=== PATIENT | female | born 1955 | race Caucasian/White ===

== ENCOUNTER 2018-10-10 14:24 | Observation (INO) | payer MEDICARE, OTHER, SELFPAY ==
[2018-10-10] VITALS (8 sets, daily range): BP systolic 124–159; BP diastolic 74–86; PULSE 66–82; RESP 14–20; TEMP 36.6–36.8; O2SAT 96–97; BMI 26.9; BMI 25.9; BMI 26.0
--- NOTE | 2018-10-10 15:09 | EKG12_ITS ---
Test Reason : CP REPEAT Blood Pressure : / mmHG Vent. Rate : 067 BPM Atrial Rate : 067 BPM P-R Int : 168 ms QRS Dur : 084 ms QT Int : 388 ms P-R-T Axes : 016 -18 013 degrees QTc Int : 409 ms Normal sinus rhythm Normal ECG When compared with ECG of 24-SEP-2015 09:59, No significant change was found Confirmed by ANASTASIA FERRARO, SANDIE ([id number]), non linear editor SOULEYMANE PRATT ([id number]) on 10/12/2018 8:53:48 AM Referred By: ANASTACIO Confirmed By:SANDIE OCONNOR MD
--- NOTE | 2018-10-10 15:15 | RAD_ITS ---
STUDY: X-RAY CHEST REASON FOR EXAM: Female, 63 years old. Chest pain TECHNIQUE: Single AP portable view of the chest. COMPARISON: None. FINDINGS: The lungs are clear and expanded. There is no demonstrated pleural abnormality. Normal size heart. Normal mediastinum and jose cruz. Normal visualized pulmonary arteries. Normal visualized aortic arch and descending thoracic aorta. There are diffuse degenerative changes of the visualized thoracic spine. There is degenerative osteoarthritis of the bilateral shoulders. There is no demonstrated abnormality of the visualized soft tissue structures of the upper abdomen. RAD/Chest 1 View (Portable) IMPRESSION: Degenerative changes, as described above. No demonstrated acute cardiopulmonary process. Electronically Signed: Jose Martinez, at 15:40 EDT Tel , Service support ,
[2018-10-10] MEDS: Aspirin 81 MG TAB.CHEW 324 MG PO (15:38)
--- NOTE | 2018-10-10 15:44 | ED.VISSUMM ---
- ER Visit Summary Date of Service: 10/10/18 Chief Complaint: [Chest pain] History of Present Illness: The patient is a 63 F [presents the emergency department complaint of chest pain that started around 2 PM today. 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 Patient has a hard time describing the discomfort but is got a dog at times and prickly at times counter underneath her breast and radiating into her left arm. Patient felt short of breath with it and somewhat nauseated. She denies feeling diaphoretic. Patient is never had discomfort like this before. Patient currently states the discomfort is resolved. Patient states his symptoms lasted more than half an hour. She takes no medications. Patient has had prior cholecystectomy. She denies recent travel or surgery. Patient's last stress test was about for 5 years ago and was normal. ] Physical Examination: [HEENT-PERRLA, EOMI. Cranial nerves II through XII grossly intact. TMs clear. Mucous membranes moist. No adenopathy. Cardiovascular-regular rate and rhythm without murmur or ectopy Lungs-clear to auscultation, chest wall stable without crepitus or subcu emphysema Abdomen-normoactive bowel sounds, soft, nontender, no rebound or rigidity, no peritoneal signs. Extremities-intact ?4, normal range of motion, normal pulses, atraumatic] Test Results: EKG obtained on arrival shows sinus rhythm with a ventricular rate of 84 bpm with some nonspecific ST changes. Chest x-ray showed nothing acute. [CBC with differential obtained was normal. Chemistries were unremarkable. Troponin was less than 0.015. D-dimer was 0.40.] Emergency Department Course and Treatment: [Patient received aspirin in the emergency department.] Treatment Plan: [Patient will be admitted for further workup and evaluation of her chest pain at] Disposition: [Admit] Impression: [Chest pain-rule out acute coronary syndrome] This note was generated with [employer] software. It may contain incorrect words, spelling, and punctuation that were not noted in review of the chart prior to signing ED Disposition - Plan for ED Patient: Referrals: Kosta Gil MD [Primary Care Provider] -
[2018-10-10 15:46] LABS: Absolute Lymphocyte Count 1.55 X10^3/ul (0.83-4.51); Absolute Neutrophil Count 4.8 X10^3/uL (2.0-7.7); Basophil# 0.05 X10^3/uL; Basophil% 0.7 % (0-1); Eosinophil# 0.27 X10^3/uL; Eosinophils% 3.7 % (0-5); Hematocrit 42.4 % (37-47); Hemoglobin 13.5 g/dl (12.0-15.0); Lymphocyte # 1.55 X10^3/ul (4.0); Mean Corp Hgb Conc 31.8 g/gl (32-36); Mean Corpuscular Hgb 29.5 pg (27.0-32.0); Mean Corpuscular Volume 92.8 fL (81-99); Mean Platelet Vol. 12.8 fl (6.2-12.0); Monocyte# 0.69 X10^3/uL; Monocyte% 9.3 % (0-10); Neutrophil # 4.81 X10^3/uL (2.7-7.7); Platelet Count 184 K/mm3 (150-450); RBC Distribution Width CV 13.4 % (11.6-14.6); RBC Distribution Width SD 44.9 fl (35.1-43.9); Red Blood Count 4.57 M/mm3 (4.2-5.4); White Blood Count 7.4 K/mm3 (4.4-11.0)
[2018-10-10 15:49] LABS: Anion Gap 8 (5-15); BUN 16 mg/dL (7-18); BUN/Creat Ratio 19.2 RATIO (10-20); Calcium,Total 9.4 mg/dL (8.5-10.1); Chloride 106 mmol/L (98-107); Creatinine, Serum 0.83 mg/dL (0.55-1.02); EST Glomerular Filtration Rate 73 mL/min (>60); Est Glom Filt Rate - Afr Amer 88 mL/min (>60); Estimated Creatinine Clearance 60.81 ml/min; Glucose 139 mg/dL (74-106); Potassium 3.9 mmol/L (3.5-5.1); Sodium Level 139 mmol/L (136-145)
[2018-10-10 15:52] LABS: POSITIVE COUNT NO; POSITIVE DIFFERENTIAL NO; POSITIVE MORPHOLOGY NO
--- NOTE | 2018-10-10 16:46 | NURSING ---
DR FISHER FOR DR JACOB
[2018-10-10] MEDS: 0.9% Normal Saline 1,000 ML 150 ML IV (16:54)
--- NOTE | 2018-10-10 16:55 | NURSING ---
RONALDO RAZO R/O NATALIA
--- NOTE | 2018-10-10 17:09 | CASEMGMT ---
RN CM Assessment Introduced role of RN CM to patient. Patient is alert, oriented and able to participate in RN CM Assessment. Care providers, pharmacy, and demographics verified. Presentation: Admitted Obs for CP r/o. CC: CP radiating to Lt arm, SOB PCP: Dr Kosta Gil Specialists: None Preferred Pharmacy: [facility] Insurance: for Life Prescription Benefit: Yes LNOK: Brett Sahni LW/POA: Denies, states would like information on it. Living Arrangements: Lives with in a 3 story home, with approx 4 steps to enter. +works, Independent with ambulation and ADL's. Transportation: Patient drives, to transport on [place]. DME: None HHC/SNF: None Goal: Home DC PLAN: Home with no anticipated needs identified. TUYET Fragoso
--- NOTE | 2018-10-10 17:14 | HP.PCM_ITS ---
Problem List (1) Chest pain Status: Acute History of Present Illness Date of Admission: 10/10/18 Chief Complaint: Chest pain The patient is a 63 year old F with no significant past medical history who presents after a 15-minute episode of chest pain with radiation down her left arm. She states that she was at work when this happened. 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 She has never had a pain like this before, however she did have a stress test in 2011 because of burning chest pain that was thought to be due to a hiatal hernia, and her stress test back then was read as normal. She used to smoke not quite 1 pack/day, and she does not remember how long. She quit smoking over 20 years ago. She is not obese, and does not know she has diabetes though she does not follow with a primary care physician regularly. She states that her last blood work was about 5 years ago. She does have a family history of heart disease with her mom having a heart attack when she was in her 70s. In the ER she was found to have a normal troponin, normal chest x-ray, and her EKG was nonspecific. Past Medical History Allergies No Known Allergies Allergy (Verified 10/10/18 14:28) Home Medications: Ambulatory Orders Medication Instructions Recorded NK 10/10/18 Surgical History: cholecystectomy, rotator cuff repair, - - Carpal tunnel Smoking Status: Former smoker Tobacco Use: Cigarettes Alcohol: None Drugs: None - *Family History Maternal History Items: Heart Disease Review of Systems Constitutional: Denies: Chills, Fever, Weight Change HEENT: Denies: Head Aches, Sinus Congestion, Sinus Drainage Cardiovascular: Reports: Chest Pain. Denies: Palpitations Respiratory: Denies: Cough, Shortness of breath at rest, Sputum production Gastrointestinal: Denies: Abdominal Pain, Nausea, Vomiting Genitourinary: Denies: Dysuria Musculoskeletal: Denies: Joint Pain, Joint Tenderness Skin: Denies: Rash, Wounds Neurological: Denies: Numbness, Tingling, Focal weakness Psychiatric: Denies: Anxiety, Depression Hematologic/ Lymphatic: Denies: Easy Bruising, Easy Bleeding VTE Information - Inpt Only VTE Present on Admission: No Patient Problems: Active and Suspected Problems Chest pain (Acute) - Physical Exam General: Alert, Oriented x3, Cooperative, No apparent distress HEENT: Atraumatic, PERRLA, EOMI, Normocephalic Oral: Moist Mucosa Neck: Supple, No JVD Lungs: Clear to auscultation, Normal air movement, No rhonchi, No wheeze, No rales, Diminished Cardiovascular: Regular rate, Regular Rhythm, Normal S1, Normal S2, No murmurs Abdomen: Soft, Non Tender, Non-Distended, No Hepato-splenomegaly Extremities: No edema, Capillary Refill Less than 3 Seconds Skin: No rashes, No breakdown Neurological: Neuro grossly intact, Sensory exam intact to light touch and pain, - Psych/Mental Status: Normal Affect, Appropriate Vital Signs Temp Pulse Resp BP Pulse Ox 97.9 F 82 20 H 145/82 H 96 10/10/18 14:25 10/10/18 16:00 10/10/18 16:00 10/10/18 16:00 10/10/18 16:00 Oxygen Flow Rate (L/min) 97 Oxygen Delivery Method Room Air Weight: 161 lb 9.581 oz Body Mass Index (BMI) 26.9 Laboratory Tests Past 24 Hrs 10/10/18 10/10/18 10/10/18 14:45 15:15 15:15 WBC 7.4 RBC 4.57 Hgb 13.5 Hct 42.4 MCV 92.8 MCH 29.5 MCHC 31.8 L RDW 13.4 RDW Differential 44.9 H Plt Count 184 MPV 12.8 H Immature Gran % (Auto) 0.300 Neut % (Auto) 65.0 Lymph % (Auto) 21.0 [place] % (Auto) 9.3 Eos % (Auto) 3.7 Baso % (Auto) 0.7 Absolute Neuts (auto) 4.8 Absolute Lymphs (auto) 1.55 Total Counted Not Reportable D-Dimer Quant (PE/DVT) 0.40 Sodium Potassium Chloride Carbon Dioxide Anion Gap BUN Creatinine Estim Creat Clear Calc Est GFR (MDRD) Af Amer Est GFR (MDRD) Non-Af BUN/Creatinine Ratio Glucose Calcium Troponin I TSH Pending 10/10/18 15:15 WBC RBC Hgb Hct MCV MCH MCHC RDW RDW Differential Plt Count MPV Immature Gran % (Auto) Neut % (Auto) Lymph % (Auto) [place] % (Auto) Eos % (Auto) Baso % (Auto) Absolute Neuts (auto) Absolute Lymphs (auto) Total Counted D-Dimer Quant (PE/DVT) Sodium 139 Potassium 3.9 Chloride 106 Carbon Dioxide 25.0 Anion Gap 8 BUN 16 Creatinine 0.83 Estim Creat Clear Calc 60.81 Est GFR (MDRD) Af Amer 88 Est GFR (MDRD) Non-Af 73 BUN/Creatinine Ratio 19.2 Glucose 139 H Calcium 9.4 Troponin I < 0.015 TSH Assessment/Plan All Active Problems Chest pain (Acute) 1. Chest pain -We will obtain serial cardiac enzymes -Plan for stress test in the morning -We will obtain a lipid panel and A1c -She received a dose of aspirin in the ER prior to admission -D-dimer was normal on admission DVT: Lovenox Code Visit OBSV E&M: 68263 Initial observation care L2
--- NOTE | 2018-10-10 17:53 | EKG12_ITS ---
Test Reason : CP Blood Pressure : / mmHG Vent. Rate : 084 BPM Atrial Rate : 084 BPM P-R Int : 162 ms QRS Dur : 080 ms QT Int : 356 ms P-R-T Axes : 005 -11 028 degrees QTc Int : 420 ms Normal sinus rhythm Nonspecific ST abnormality Abnormal ECG Confirmed by ANASTASIA FERRARO, SANDIE ([id number]), editor news CANDIE ALEXANDER ([id number]) on 10/11/2018 3:58:49 PM Referred By: SILVINO Confirmed By:SANDIE OCONNOR MD
[2018-10-11 03:00] VITALS: PULSE 64
[2018-10-11 03:28] VITALS: BP 124/65; PULSE 61; RESP 14; TEMP 36.6; O2SAT 96
--- NOTE | 2018-10-11 05:55 | EKG12_ITS ---
Test Reason : AM EKG Blood Pressure : / mmHG Vent. Rate : 065 BPM Atrial Rate : 065 BPM P-R Int : 160 ms QRS Dur : 082 ms QT Int : 400 ms P-R-T Axes : 010 -20 -22 degrees QTc Int : 416 ms Normal sinus rhythm Normal ECG When compared with ECG of 10-OCT-2018 18:04, MANUAL COMPARISON REQUIRED, DATA IS UNCONFIRMED Confirmed by ANASTASIA FERRARO, SANDIE ([id number]), index editor SOULEYMANE PRATT ([id number]) on 10/12/2018 8:48:50 AM Referred By: DR BELTRAN Confirmed By:SANDIE OCONNOR MD
[2018-10-11 06:04] VITALS: BP 135/73; PULSE 70; RESP 16; TEMP 36.6; O2SAT 96
[2018-10-11 06:10] LABS: Absolute Lymphocyte Count 1.19 X10^3/ul (0.83-4.51); Absolute Neutrophil Count 2.8 X10^3/uL (2.0-7.7); Basophil# 0.03 X10^3/uL; Basophil% 0.6 % (0-1); Eosinophil# 0.28 X10^3/uL; Eosinophils% 5.5 % (0-5); Hematocrit 41.5 % (37-47); Hemoglobin 13.2 g/dl (12.0-15.0); Lymphocyte # 1.19 X10^3/ul (4.0); Lymphocyte % 23.2 % (19-41); Mean Corp Hgb Conc 31.8 g/gl (32-36); Mean Corpuscular Hgb 29.6 pg (27.0-32.0); Mean Platelet Vol. 12.4 fl (6.2-12.0); Monocyte# 0.79 X10^3/uL; Monocyte% 15.4 % (0-10); Neutrophil # 2.82 X10^3/uL (2.7-7.7); Neutrophil % 55.1 % (47-70); Platelet Count 157 K/mm3 (150-450); RBC Distribution Width CV 13.5 % (11.6-14.6); RBC Distribution Width SD 45.1 fl (35.1-43.9); Red Blood Count 4.46 M/mm3 (4.2-5.4); White Blood Count 5.1 K/mm3 (4.4-11.0)
[2018-10-11 06:11] LABS: International Normalized Ratio 1.1; Partial Thromboplast Time 29.2 Seconds (24.1-36.2); Prothrombin Time (Protime)PT. 13.6 SECONDS (11.7-14.9)
[2018-10-11 06:15] LABS: POSITIVE COUNT NO; POSITIVE DIFFERENTIAL NO; POSITIVE MORPHOLOGY NO
[2018-10-11 06:48] LABS: Anion Gap 6 (5-15); BUN 12 mg/dL (7-18); BUN/Creat Ratio 15.3 RATIO (10-20); Calcium,Total 9.1 mg/dL (8.5-10.1); Chloride 110 mmol/L (98-107); Cholesterol 171 mg/dL (200); Creatinine, Serum 0.78 mg/dL (0.55-1.02); EST Glomerular Filtration Rate 78 mL/min (>60); Est Glom Filt Rate - Afr Amer 94 mL/min (>60); Glucose 97 mg/dL (74-106); High Density Lipoprotein 52 mg/dL; Sodium Level 141 mmol/L (136-145); Triglycerides 124 mg/dL; Very Low Density Lipoprotein 25 mg/dL (5-40)
[2018-10-11 08:17] LABS: Hemoglobin A1c 6.2 % (4.2-6.3)
--- NOTE | 2018-10-11 08:34 | STRESSREP ---
Stress Test Report Exercise myocardial perfusion stress test. 63-year-old lady with a history of chest pain. Stress protocol: Resting EKG demonstrates sinus rhythm with a rate of 62 bpm normal intervals are noted resting blood pressure 142/82 mmHg. The patient exercised according to regular [facility] protocol for total duration of 9 minutes. The maximum heart rate attained was 136 bpm which was 87% of maximum predicted heart rate the maximum workload attained was 10.1 metabolic equivalents. The patient maintained sinus rhythm throughout the recording at rest there were no ST or T wave changes noted suggest ischemia peak exercise upsloping ST changes only were noted with no meet the criteria for ischemia. The resting blood pressure 142/82 with a peak blood pressure 184/80 mmHg rate pressure product was 24,700. Myocardial perfusion protocol. 11.2mci of technetium 99m sestamibi was injected at rest. The patient exercised according to regular [facility] protocol. At peak exercise 31.9millicuries of sestamibi was injected. Stress and rest images were reconstructed and compared in the short axis vertical long horizontal long axis. Gated images were also obtained Perfusion SPECT analysis: Review of the stress images demonstrate normal uptake of tracer noted in all areas of the myocardium. The resting images similarly demonstrate normal uptake of tracer noted in all areas of the myocardium. No areas of reversibility are noted suggest ischemia. Gated SPECT analysis: The gated ejection fraction is noted to be 70%. Conclusion: Normal exercise myocardial perfusion stress test at a high workload. Preserved ejection fraction.
[2018-10-11 08:43] VITALS: BP 134/75; PULSE 78; RESP 16; TEMP 36.6; O2SAT 97
[2018-10-11 08:59] VITALS: PULSE 73
--- NOTE | 2018-10-11 11:56 | DCINST_ITS ---
- Discharge Diagnoses Current Active Problems: Current Active and Chronic Problems Chest pain (Acute) You will use the following diet at home:: No restrictions Your food should be the consistency of: Regular Discharge Activity: Return to Normal Activity Instructions: ED Chest Pain NonCardiac Allergies/Adverse Reactions: Allergies No Known Allergies Allergy (Verified 10/10/18 14:28) Medications to take at Discharge NK 10/10/18 Primary Care Physician: Kosta Gil MD [Primary Care Provider] - 10/19/18 Test Results: Test results from this visit will be discussed in further detail at your follow- up appointment, if applicable. Proposed Discharge Date: 10/11/18
--- NOTE | 2018-10-11 11:56 | PCM.DC.SUM ---
Discharge Date and Diagnosis - Problem List Patient Problems: Active and Suspected Problems Chest pain (Acute) PVC (premature ventricular contraction) (Acute) Date of Admission: 10/10/18 Date of Discharge: 10/11/18 - Primary Discharge Diagnosis Active and Suspected Problems Chest pain (Acute) Hospital Course and Treatment Imaging Results: 10/11/18 05:55 Nuclear Stress Test - Treadmil [NM] AM (NON MEDS) Clinical Impression(s) from Imaging Studies Chest X-Ray 10/10/18 15:15 IMPRESSION: Degenerative changes, as described above. No demonstrated acute cardiopulmonary process. Electronically Signed: Jose Martinez, at 15:40 EDT Tel , Service support , Operations: None Procedures: Stress test Summary of Care Provided: The patient is a 63 year old F presents with left-sided chest pain. Is also associated with left arm numbness. She was admitted had further cardiac workup, including EKG, troponins and stress test. All of which were negative. On exam, patient had no reproducible chest wall tenderness no skin findings to suggest shingles. Discussed the patient that this could be costochondritis versus esophageal spasm. Did provide reassurance that this is certainly not cardiac. Patient does also complain of fluttering in her chest and telemetry revealed very infrequent PVCs while she was here. Her electrolytes here were normal as well as her TSH. Advised patient to continue her follow-up with Dr. Gil on the . Patient has a thyroid nodule that is going to be further evaluated. Her TSH here was normal. [] Patient Problems: Active and Suspected Problems Chest pain (Acute) PVC (premature ventricular contraction) (Acute) - Physical Exam General: Alert, No apparent distress HEENT: Atraumatic, Normocephalic Oral: Moist Mucosa, No Gingival or Mucosal Lesions/ Ulcerations Neck: No Nodes, Thyroid Normal Size and Texture Lungs: Clear to auscultation, Normal air movement, No rhonchi, No wheeze Cardiovascular: Regular rate, Regular Rhythm, Normal S1, Normal S2, No murmurs Abdomen: Bowel Sounds Present, Soft, Non Tender, Non-Distended, No Hepato-splenomegaly Extremities: No edema, No Calf Tenderness Skin: No rashes, No breakdown Vital Signs Temp Pulse Resp BP Pulse Ox 36.6 C 73 16 134/75 H 97 10/11/18 08:43 10/11/18 08:59 10/11/18 08:43 10/11/18 08:43 10/11/18 08:43 Oxygen Flow Rate (L/min) 97 Oxygen Delivery Method Room Air Weight: 70.851 kg Body Mass Index (BMI) 25.9 Intake and Output for Last 24 Hours 10/09/18 10/10/18 10/11/18 23:59 23:59 23:59 Intake Total 480 / 480 Balance 480 / 480 Laboratory Tests Past 24 Hrs 10/10/18 10/10/18 10/10/18 14:45 15:15 15:15 WBC 7.4 RBC 4.57 Hgb 13.5 Hct 42.4 MCV 92.8 MCH 29.5 MCHC 31.8 L RDW 13.4 RDW Differential 44.9 H Plt Count 184 MPV 12.8 H Immature Gran % (Auto) 0.300 Neut % (Auto) 65.0 Lymph % (Auto) 21.0 [place] % (Auto) 9.3 Eos % (Auto) 3.7 Baso % (Auto) 0.7 Absolute Neuts (auto) 4.8 Absolute Lymphs (auto) 1.55 Total Counted Not Reportable PT INR APTT D-Dimer Quant (PE/DVT) 0.40 Sodium Potassium Chloride Carbon Dioxide Anion Gap BUN Creatinine Estim Creat Clear Calc Est GFR (MDRD) Af Amer Est GFR (MDRD) Non-Af BUN/Creatinine Ratio Glucose Hemoglobin A1c Calcium Troponin I Triglycerides Cholesterol LDL Cholesterol VLDL Cholesterol HDL Cholesterol TSH 1.00 10/10/18 10/10/18 10/10/18 15:15 18:33 21:58 WBC RBC Hgb Hct MCV MCH MCHC RDW RDW Differential Plt Count MPV Immature Gran % (Auto) Neut % (Auto) Lymph % (Auto) [place] % (Auto) Eos % (Auto) Baso % (Auto) Absolute Neuts (auto) Absolute Lymphs (auto) Total Counted PT INR APTT D-Dimer Quant (PE/DVT) Sodium 139 Potassium 3.9 Chloride 106 Carbon Dioxide 25.0 Anion Gap 8 BUN 16 Creatinine 0.83 Estim Creat Clear Calc 60.81 Est GFR (MDRD) Af Amer 88 Est GFR (MDRD) Non-Af 73 BUN/Creatinine Ratio 19.2 Glucose 139 H Hemoglobin A1c Calcium 9.4 Troponin I < 0.015 < 0.015 < 0.015 Triglycerides Cholesterol LDL Cholesterol VLDL Cholesterol HDL Cholesterol TSH 10/11/18 10/11/18 10/11/18 05:30 05:30 05:30 WBC 5.1 RBC 4.46 Hgb 13.2 Hct 41.5 MCV 93.0 MCH 29.6 MCHC 31.8 L RDW 13.5 RDW Differential 45.1 H Plt Count 157 MPV 12.4 H Immature Gran % (Auto) 0.200 Neut % (Auto) 55.1 Lymph % (Auto) 23.2 [place] % (Auto) 15.4 H Eos % (Auto) 5.5 H Baso % (Auto) 0.6 Absolute Neuts (auto) 2.8 Absolute Lymphs (auto) 1.19 Total Counted Not Reportable PT INR APTT D-Dimer Quant (PE/DVT) Sodium 141 Potassium 4.0 Chloride 110 H Carbon Dioxide 25.0 Anion Gap 6 BUN 12 Creatinine 0.78 Estim Creat Clear Calc 64.70 Est GFR (MDRD) Af Amer 94 Est GFR (MDRD) Non-Af 78 BUN/Creatinine Ratio 15.3 Glucose 97 Hemoglobin A1c 6.2 Calcium 9.1 Troponin I Triglycerides 124 Cholesterol 171 LDL Cholesterol 94 VLDL Cholesterol 25 HDL Cholesterol 52 TSH 10/11/18 05:30 WBC RBC Hgb Hct MCV MCH MCHC RDW RDW Differential Plt Count MPV Immature Gran % (Auto) Neut % (Auto) Lymph % (Auto) [place] % (Auto) Eos % (Auto) Baso % (Auto) Absolute Neuts (auto) Absolute Lymphs (auto) Total Counted PT 13.6 INR 1.1 APTT 29.2 D-Dimer Quant (PE/DVT) Sodium Potassium Chloride Carbon Dioxide Anion Gap BUN Creatinine Estim Creat Clear Calc Est GFR (MDRD) Af Amer Est GFR (MDRD) Non-Af BUN/Creatinine Ratio Glucose Hemoglobin A1c Calcium Troponin I Triglycerides Cholesterol LDL Cholesterol VLDL Cholesterol HDL Cholesterol TSH Discharge Diet: No Restrictions Discharge Activity: Return to Normal Activity Home Medications: Medications to take at Discharge NK 10/10/18 Primary Care Physician: Kosta Gil MD [Primary Care Provider] - 10/19/18 Patient Instructions: ED Chest Pain NonCardiac Disposition: Home Minutes spent on discharge:: 26 Patient Condition:: Good Medical Necessity - Tobacco Use Smoking Status: Former smoker Tobacco Use: Cigarettes Meaningful Use Info Meaningful Use Diagnoses (Choose all that apply): None applicable Code Visit OBSV E&M: 28883 Observation care discharge
--- NOTE | 2018-10-11 11:59 | DS.PCM_ITS ---
Discharge Date and Diagnosis - Problem List Patient Problems: Active and Suspected Problems Chest pain (Acute) PVC (premature ventricular contraction) (Acute) Date of Admission: 10/10/18 Date of Discharge: 10/11/18 - Primary Discharge Diagnosis Active and Suspected Problems Chest pain (Acute) Hospital Course and Treatment Imaging Results: 10/11/18 05:55 Nuclear Stress Test - Treadmil [NM] AM (NON MEDS) Clinical Impression(s) from Imaging Studies Chest X-Ray 10/10/18 15:15 IMPRESSION: Degenerative changes, as described above. No demonstrated acute cardiopulmonary process. Electronically Signed: Jose Martinez, at 15:40 EDT Tel , Service support , Operations: None Procedures: Stress test Summary of Care Provided: The patient is a 63 year old F presents with left-sided chest pain. Is also associated with left arm numbness. She was admitted had further cardiac workup, including EKG, troponins and stress test. All of which were negative. On exam, patient had no reproducible chest wall tenderness no skin findings to suggest shingles. Discussed the patient that this could be costochondritis versus esophageal spasm. Did provide reassurance that this is certainly not cardiac. Patient does also complain of fluttering in her chest and telemetry revealed very infrequent PVCs while she was here. Her electrolytes here were normal as well as her TSH. Advised patient to continue her follow-up with Dr. Gil on the . Patient has a thyroid nodule that is going to be further evaluated. Her TSH here was normal. [] Patient Problems: Active and Suspected Problems Chest pain (Acute) PVC (premature ventricular contraction) (Acute) - Physical Exam General: Alert, No apparent distress HEENT: Atraumatic, Normocephalic Oral: Moist Mucosa, No Gingival or Mucosal Lesions/ Ulcerations Neck: No Nodes, Thyroid Normal Size and Texture Lungs: Clear to auscultation, Normal air movement, No rhonchi, No wheeze Cardiovascular: Regular rate, Regular Rhythm, Normal S1, Normal S2, No murmurs Abdomen: Bowel Sounds Present, Soft, Non Tender, Non-Distended, No Hepato- splenomegaly Extremities: No edema, No Calf Tenderness Skin: No rashes, No breakdown Vital Signs Temp Pulse Resp BP Pulse Ox 36.6 C 73 16 134/75 H 97 10/11/18 08:43 10/11/18 08:59 10/11/18 08:43 10/11/18 08:43 10/11/18 08:43 Oxygen Flow Rate (L/min) 97 Oxygen Delivery Method Room Air Weight: 70.851 kg Body Mass Index (BMI) 25.9 Intake and Output for Last 24 Hours 10/09/18 10/10/18 10/11/18 23:59 23:59 23:59 Intake Total 480 / 480 Balance 480 / 480 Laboratory Tests Past 24 Hrs 10/10/18 10/10/18 10/10/18 14:45 15:15 15:15 WBC 7.4 RBC 4.57 Hgb 13.5 Hct 42.4 MCV 92.8 MCH 29.5 MCHC 31.8 L RDW 13.4 RDW Differential 44.9 H Plt Count 184 MPV 12.8 H Immature Gran % (Auto) 0.300 Neut % (Auto) 65.0 Lymph % (Auto) 21.0 Phillips % (Auto) 9.3 Eos % (Auto) 3.7 Baso % (Auto) 0.7 Absolute Neuts (auto) 4.8 Absolute Lymphs (auto) 1.55 Total Counted Not Reportable PT INR APTT D-Dimer Quant (PE/DVT) 0.40 Sodium Potassium Chloride Carbon Dioxide Anion Gap BUN Creatinine Estim Creat Clear Calc Est GFR (MDRD) Af Amer Est GFR (MDRD) Non-Af BUN/Creatinine Ratio Glucose Hemoglobin A1c Calcium Troponin I Triglycerides Cholesterol LDL Cholesterol VLDL Cholesterol HDL Cholesterol TSH 1.00 10/10/18 10/10/18 10/10/18 15:15 18:33 21:58 WBC RBC Hgb Hct MCV MCH MCHC RDW RDW Differential Plt Count MPV Immature Gran % (Auto) Neut % (Auto) Lymph % (Auto) Phillips % (Auto) Eos % (Auto) Baso % (Auto) Absolute Neuts (auto) Absolute Lymphs (auto) Total Counted PT INR APTT D-Dimer Quant (PE/DVT) Sodium 139 Potassium 3.9 Chloride 106 Carbon Dioxide 25.0 Anion Gap 8 BUN 16 Creatinine 0.83 Estim Creat Clear Calc 60.81 Est GFR (MDRD) Af Amer 88 Est GFR (MDRD) Non-Af 73 BUN/Creatinine Ratio 19.2 Glucose 139 H Hemoglobin A1c Calcium 9.4 Troponin I < 0.015 < 0.015 < 0.015 Triglycerides Cholesterol LDL Cholesterol VLDL Cholesterol HDL Cholesterol TSH 10/11/18 10/11/18 10/11/18 05:30 05:30 05:30 WBC 5.1 RBC 4.46 Hgb 13.2 Hct 41.5 MCV 93.0 MCH 29.6 MCHC 31.8 L RDW 13.5 RDW Differential 45.1 H Plt Count 157 MPV 12.4 H Immature Gran % (Auto) 0.200 Neut % (Auto) 55.1 Lymph % (Auto) 23.2 Phillips % (Auto) 15.4 H Eos % (Auto) 5.5 H Baso % (Auto) 0.6 Absolute Neuts (auto) 2.8 Absolute Lymphs (auto) 1.19 Total Counted Not Reportable PT INR APTT D-Dimer Quant (PE/DVT) Sodium 141 Potassium 4.0 Chloride 110 H Carbon Dioxide 25.0 Anion Gap 6 BUN 12 Creatinine 0.78 Estim Creat Clear Calc 64.70 Est GFR (MDRD) Af Amer 94 Est GFR (MDRD) Non-Af 78 BUN/Creatinine Ratio 15.3 Glucose 97 Hemoglobin A1c 6.2 Calcium 9.1 Troponin I Triglycerides 124 Cholesterol 171 LDL Cholesterol 94 VLDL Cholesterol 25 HDL Cholesterol 52 TSH 10/11/18 05:30 WBC RBC Hgb Hct MCV MCH MCHC RDW RDW Differential Plt Count MPV Immature Gran % (Auto) Neut % (Auto) Lymph % (Auto) Phillips % (Auto) Eos % (Auto) Baso % (Auto) Absolute Neuts (auto) Absolute Lymphs (auto) Total Counted PT 13.6 INR 1.1 APTT 29.2 D-Dimer Quant (PE/DVT) Sodium Potassium Chloride Carbon Dioxide Anion Gap BUN Creatinine Estim Creat Clear Calc Est GFR (MDRD) Af Amer Est GFR (MDRD) Non-Af BUN/Creatinine Ratio Glucose Hemoglobin A1c Calcium Troponin I Triglycerides Cholesterol LDL Cholesterol VLDL Cholesterol HDL Cholesterol TSH Discharge Diet: No Restrictions Discharge Activity: Return to Normal Activity Home Medications: Medications to take at Discharge NK 10/10/18 Primary Care Physician: Kosta Gil MD [Primary Care Provider] - 10/19/18 Patient Instructions: ED Chest Pain NonCardiac Disposition: Home Minutes spent on discharge:: 26 Patient Condition:: Good Medical Necessity - Tobacco Use Smoking Status: Former smoker Tobacco Use: Cigarettes Meaningful Use Info Meaningful Use Diagnoses (Choose all that apply): None applicable Code Visit OBSV E&M: 44696 Observation care discharge
== END 2018-10-11 11:56 | disposition home or self-care (01) ==
LOC: ED 15:48 → PCU 17:09
PROVIDERS: Admitting Provider Family Medicine; Emergency Provider Emergency Medicine; Family Provider Family Medicine; PCP Family Medicine
DX: R07.89 Other chest pain (principal); R06.02 Shortness of breath; R11.0 Nausea; Z87.891 Personal history of nicotine dependence; Z82.49 Family history of ischemic heart disease and other diseases of the circulatory system; I49.3 Ventricular premature depolarization; E04.1 Nontoxic single thyroid nodule; R94.31 Abnormal electrocardiogram [ECG] [EKG]; R20.0 Anesthesia of skin
CPT/HCPCS: 36415; 71045; 78452; 80048; 80061; 83036; 84443; 84484; 85025; 85379; 85610; 85730; 93005; 93017; 96360; 96361; 99218; 99285; A9500; A4216; G0378

== ENCOUNTER → 2018-10-17 08:37 | Outpatient (CLI) | payer MEDICARE, OTHER, SELFPAY ==
[2018-10-10 18:07] VITALS: BMI 25.9
[2018-10-17 11:17] LABS: Free T3 2.9 pg/mL (2.18-3.98); T4 Free Direct 1.02 ng/dL (0.76-1.46)
[2018-10-19 11:42] LABS: Anti-Thyroglobulin AB < 1.0 IU/mL (0.0-0.9); Thyroglobulin, Serum Qt. 232.5 ng/mL (1.5-38.5); Thyroid Peroxidase AB 9 IU/mL (0-34)
== END ==
PROVIDERS: Family Provider Family Medicine; PCP Family Medicine; Referring Provider Family Medicine; Visit Provider Family Medicine
DX: E66.3 Overweight (principal)
CPT/HCPCS: 36415; 84432; 84439; 84481; 86376; 86800

== ENCOUNTER → 2018-10-24 10:23 | Outpatient (CLI) | payer MEDICARE, OTHER, SELFPAY ==
[2018-10-10 18:07] VITALS: BMI 25.9
--- NOTE | 2018-10-24 10:29 | US_ITS ---
STUDY: THYROID ULTRASOUND REASON FOR EXAM: Female, 63 years old. Thyroid nodules. TECHNIQUE: Ultrasound evaluation of the thyroid was performed with real-time and static fam-scale imaging. COMPARISON: None. FINDINGS: RIGHT LOBE: The right lobe of the thyroid gland is enlarged and measures 6.3 cm x 2.5 cm x 3.2 cm. There is a heterogeneous echotexture. 3 solid nodules are seen with increased vascularity. The largest measures 2.5 Jessica by 1.6 cm x 6 cm. A biopsy is recommended for further evaluation. LEFT LOBE: The left lobe of the thyroid gland is enlarged and measures 6.8 cm x 3.5 cm x 2.5 cm. cm. There is a heterogeneous echotexture. Multiple solid and cystic nodules are seen. The largest solid nodule measures 2.6 x 1.9 cm x 1.7 cm. Increased vascularity is seen. ISTHMUS: The isthmus is enlarged and measures 9 mm. The regional lymph nodes are normal. US/Thyroid IMPRESSION: Enlarged thyroid gland with multiple nodules in both lobes and increased vascularity. A biopsy recommended for further evaluation. Electronically Signed: Arron Macdonald, at 9:51 EDT , Service support ,
== END ==
PROVIDERS: Family Provider Family Medicine; PCP Family Medicine; Referring Provider Family Medicine; Visit Provider Family Medicine
DX: R22.1 Localized swelling, mass and lump, neck (principal)
CPT/HCPCS: 76536

== ENCOUNTER 2018-10-25 10:23 | Outpatient (RCR) | payer MEDICARE, OTHER, SELFPAY ==
[2018-10-10 18:07] VITALS: BMI 25.9
--- NOTE | 2018-10-25 11:37 | HP.PTEVAL ---
Patient's Visit Information ARABELLA HERNÁNDEZ is a 63 year old F referred to Physical Therapy by Kosta Gil MD with a diagnosis of cervicalgia, muscular chest pain ( scalens and pec minor L). Date of Evaluation: 10/25/18 Physical Therapist: RANDELL Davis - Visit Plan Plan: Hold chart at this time. Pt would like to get all of her test results back first as she feels that this is not muscular pain as she lives with muscular pain everyday. Pt to call in and leave a message as to whether she wants to proceed with PT. - Subjective Findings: Pt had to go to the Dr for a different reason. She feels that the Dr misunderstood her pain. She gets muscle pain and this is not muscle pain. She has pain in her chest that goes to the back of her....she has always had pain in her neck. SHe was a truck driver heavy for 30 years. She has pain in her neck and back but she just lives with it because she is very active and very physical. She has horses and lifts all the time on the farm. Everybody hurts somewhere. She has lump on her thyroid that she just got ultrasounded yesterday. She had a thyroid She has sarcoidosis diagnosed a few years ago. She feels that this pain is sharp shooting pain that comes and goes....she might have them this morning and not in the afternoon or will have them all day. 2 mondays ago she had sharp pain under L rib and around L breast and down the L arm. Her heart was fine. She has had them since but not as severe..... and they radiate outward. CT scan of the chest region. She gets pain down the buttock on the L and down the L leg and sometimes on the R huntley as well and that will wake her up at [facility]. SHe stretches and that helps to relieve her symptoms. Pt reports that she has been dropping more stuff on the R side. - Pain chest/rib/ thoracis pain Pain Intensity (Out of 10): 2 Pain Intensity Range: 10 Comment: the pain moves - Objective Bicep relfex 1+/3 on the R and 2+/3 on the L. R energy risk management analyst strength 49 and L energy risk management analyst strength 53. C-spine AROM: ext 25%, flex 100%, Rot B 100%, SB B 80%. UE AROM: full AROM. UE MMT: flex, abd, ER and IR 4+/5 B. Full trunk AROM of Lumbar and thoracic B did not elicit pain. Extension of thoracic spine over a chair did not elicit pain. thoracic extension mobs and palpation did not elicit the pain that the pt was complain of that radiates - Anticipated Interventions Patient/Client Instruction: Educate patient on: Plan of Care Comments: To HOLD Chart at this time Thank you for the opportunity to evaluate your patient. For Medicare and Medicare HMO plans, please review the plan of care and approve it. It will need to be FAXED BACK to us at [phone] for Medicare purposes. For Medicare only, by signing this I certify the plan of care. Please let me know if there are questions or concerns regarding this plan of care. Physician Signature: Date:
--- NOTE | 2019-02-28 13:26 | HP.PT.NRP ---
HP - Discharge Summary (1) - Patient Information ARABELLA HERNÁNDEZ was seen in my office for initial evaluation on 10/25/18. The following Plan of Care was established for this patient: - Anticipated Interventions Patient/Client Instruction: Educate patient on: Plan of Care Comments: To HOLD Chart at this time This patient was last seen in our office 10/25/18. Pertinent comments regarding their Physical therapy will appear below: DC PT as pt did not feel that her pain could be helped with PT. At this point I will be discontinuing this patient from physical therapy. I would be happy to see this patient again in the future if found appropriate by the physician. Thank you! Roselyn Perry, MPT
== END 2018-10-25 19:00 ==
LOC: PT 10:23
PROVIDERS: Family Provider Family Medicine; PCP Family Medicine; Referring Provider Family Medicine; Visit Provider Family Medicine
DX: M54.2 Cervicalgia (principal); R07.89 Other chest pain
CPT/HCPCS: 97162

== ENCOUNTER → 2018-10-27 17:27 | Outpatient (CLI) | payer MEDICARE, OTHER, SELFPAY ==
[2018-10-10 18:07] VITALS: BMI 25.9
--- NOTE | 2018-10-27 17:32 | CT_ITS ---
STUDY: CT CHEST/THORAX WITHOUT CONTRAST REASON FOR EXAM: Female, 63 years old. Chest tightness and trouble swallowing. Known sarcoidosis. RADIATION DOSAGE (If Supplied By Facility): CTDIvol = ( 10.11 ) mGy, DLP = ( 386.56 ) mGycm TECHNIQUE: Transaxial imaging was performed without the administration of intravenous contrast material. Multiplanar coronal and sagittal images were reformatted. Individualized dose optimization techniques were used for this CT. COMPARISON: Portable AP upright chest x-ray October 10, 2018; thyroid ultrasound October 24, 2018. FINDINGS: The thyroid gland is enlarged and there are multiple ill-defined nodular structures, some with coarse marginal calcifications. There is a 5 mm oval-shaped calcified granuloma in the posterior left lung base near the diaphragm. There is minor curvilinear scarring in the posterior lung bases. There is no demonstrated pleural abnormality. Normal heart and pericardium. There are calcifications of the coronary arteries. Normal upper mediastinum. There are calcified subcarinal and left hilar lymph nodes. Normal unenhanced pulmonary arteries. There is atherosclerotic calcification of the aortic arch, proximal brachiocephalic arteries, and mid descending thoracic aorta. There are multi-level degenerative changes of the visualized spine. There are metal fixation screws in the posterior aspect of the right humeral head. Subarticular cystic degenerative changes seen in the glenoid of the left scapula and posterior left humeral head. There is no demonstrated abnormality of the visualized upper abdomen. CT/Chest without Contrast IMPRESSION: 1. Findings old calcified granulomatous disease. Minor curvilinear scarring also seen in the posterior lung bases. 2. Enlarged thyroid gland with multiple ill-defined nodules, some with coarse marginal calcifications. This correlates to the earlier ultrasound. 3. Atherosclerotic vascular calcifications noted. Heart size within normal limits. 4. Metal fixation screws in the posterior aspect of the right humeral head. Electronically Signed: Arpan Peña MD at 19:45 EDT , Service support ,
== END ==
PROVIDERS: Family Provider Family Medicine; PCP Family Medicine; Referring Provider Family Medicine; Visit Provider Family Medicine
DX: D86.9 Sarcoidosis, unspecified (principal)
CPT/HCPCS: 71250

== ENCOUNTER → 2018-11-08 | Outpatient (CLI) | payer MEDICARE, OTHER, SELFPAY ==
[2018-10-10 18:07] VITALS: BMI 25.9
--- NOTE | 2018-11-08 | FLU_PTH ---
PATIENT: ARABELLA HERNÁNDEZ LOC: [facility] U#:[id number] AGE/SX: 63/F ROOM: RE11/08/[address]: Dr. Patria Rockwell MD : [id number] BED: DIS: 11/08/2018 SPEC #: [id number] RECD: 11/08/18 17:03 STATUS: KIM RENader #: [id number] ANTONIA: 11/08/18 00:[address]: Patria Rockwell DEPT: CYTOLOGY RECD BY: Preet Berumen ENTERED: 11/09/18 14:15 SP TYPE: Fluid OTHR DR: Dr. Kosta Gil MD Tissues: A - Thyroid gland, NOS B - Thyroid gland, NOS C - Thyroid gland, NOS D - Thyroid gland, NOS Procedures: Special Stain Group II Surgery Specimen Level IV Cytospin Fluid HEADER OPERATION: Bilateral thyroid FNA PRE-OP DIAGNOSIS: Thyroid lesions TISSUE SUBMITTED: A - Right thyroid aspirate in formalin, B - Right thyroid FNA slides x8, C - Left thyroid aspirate in formalin, D - Left thyroid FNA slides x8 DIAGNOSIS CYTOLOGY A. Right thyroid lesion, fine needle aspiration (cytospin and cell block): Adequate for evaluation. Consistent with benign follicular/colloid nodule with cystic change. B. Right thyroid nodule, fine needle aspiration (smears). Adequate for evaluation. Consistent with benign follicular/colloid nodule with cystic change. C. Left thyroid lesion, fine needle aspiration (cytospin and cell block): Adequate for evaluation. Consistent with benign follicular/colloid nodule with cystic change. D. Left thyroid nodule, fine needle aspiration (smears). Adequate for evaluation. Consistent with benign follicular/colloid nodule with cystic change. AM:david 11/10/18 CYTOLOGY STUDY Slides are reviewed. CYTOLOGY GROSS A - Received is 30 ml of brown cloudy fluid labeled with the patient's name and and designated per the requisition as right thyroid. Submitted for cytology preparation including cell block. B - Received are eight smears labeled with the patient's name and designated per the requisition as right thyroid. Submitted for staining. C - Received is 30 ml of brown cloudy fluid labeled with the patient's name and and designated per the requisition as left thyroid. Submitted for cytology preparation including cell block. D - Received are eight smears labeled with the patient's name and designated per the requisition as left thyroid. Submitted for staining. / 11/09/18 TC:5 CPT: 01035 x2, 14972 x2, 79858 x2
== END | disposition home or self-care (01) ==
PROVIDERS: Family Provider Family Medicine; PCP Family Medicine; Visit Provider Surgery
DX: E07.9 Disorder of thyroid, unspecified (principal)
CPT/HCPCS: 88108; 88305; 88313

== ENCOUNTER → 2018-12-05 12:17 | Outpatient (CLI) | payer MEDICARE, OTHER, SELFPAY ==
[2018-12-05 11:17] VITALS: BMI 26.9
--- NOTE | 2018-12-05 12:20 | RAD_ITS ---
STUDY: X-RAY CHEST REASON FOR EXAM: Female, 63 years old. Chest pain after trauma TECHNIQUE: PA and lateral views of the chest. COMPARISON: None. FINDINGS: The lungs are clear and expanded. There is no demonstrated pleural abnormality. Normal size heart. Normal mediastinum and jose cruz. Normal visualized pulmonary arteries. There is atherosclerotic calcification of the aortic arch with tortuosity. There are diffuse degenerative changes of the visualized thoracic spine. Old healed right rib fractures. Evidence of previous right rotator cuff repair. There is no demonstrated abnormality of the visualized soft tissue structures of the upper abdomen. RAD/Chest PA and Lateral IMPRESSION: No acute pulmonary process Electronically Signed: Arpan Quintana MD at 14:52 EDT , Service support ,
== END ==
PROVIDERS: Family Provider Family Medicine; PCP Family Medicine; Referring Provider Internal Medicine Critical Care Medicine; Visit Provider Internal Medicine Critical Care Medicine
DX: R07.89 Other chest pain (principal)
CPT/HCPCS: 71046

== ENCOUNTER → 2019-01-03 | Outpatient (CLI) | payer MEDICARE, OTHER, SELFPAY ==
[2018-12-05 11:17] VITALS: BMI 26.9
--- NOTE | 2019-01-03 15:09 | PFTCOMP ---
COMPLETE PULMONARY FUNCTION TEST INTERPRETATION Brief HPI: Patient is a 63 year old female, currently under the care of Dr. Gregory, who presents to [facility] for complete pulmonary function tests secondary to diagnosis of sarcoidosis. Respiratory therapist reports good effort and reproducible results. Interpretation: Forced expiration spirometry shows no large airways obstructive ventilatory defect with an FEV1 of 103% predicted. There is no significant bronchodilator response by strict ATS criteria. Spirograms are of good quality and plateau normally. The respiratory flow volume loop shows a normal pattern. Lung volumes by body plethysmography show a normal total lung capacity at 5.38 L, 106% predicted. All other lung volumes are within normal limits. Diffusion capacity by carbon monoxide is normal at 108% predicted. The airway resistance is normal. No previous pulmonary function tests were available for review. Impression: These pulmonary function tests are within normal limits
== END | disposition home or self-care (01) ==
LOC: PSN 10:05
PROVIDERS: Family Provider Family Medicine; PCP Family Medicine; Referring Provider Internal Medicine Critical Care Medicine; Visit Provider Internal Medicine Critical Care Medicine
DX: D86.9 Sarcoidosis, unspecified (principal)
CPT/HCPCS: 94060; 94726; 94729

== ENCOUNTER → 2019-12-19 14:28 | Outpatient (CLI) | payer MEDICARE, OTHER, SELFPAY ==
[2019-12-19 14:11] VITALS: BMI 26.9
--- NOTE | 2019-12-19 14:39 | RAD_ITS ---
STUDY: X-RAY - PELVIS AND BILATERAL HIPS REASON FOR EXAM: Female, 64 years old. Pt fell 3 weeks ago, currently in physical therapy, still having left hip and groin pain TECHNIQUE: AP view of the pelvis.? 2 views of the right hip, and 2 views of the left hip were obtained. COMPARISON: None. FINDINGS: There is a non-specific bowel gas pattern. There are atherosclerotic vascular calcifications of the pelvic arteries. Normal bilateral iliac wings, sacroiliac joints and visualized sacrum. Nondisplaced fracture of the left superior and inferior pubic rami. There is narrowing with sclerosis of the pubic symphysis. Normal bilateral ischial tuberosities. Normal visualized right femoral head. Normal right acetabulum. There is mild articular joint space narrowing of the right hip. Normal visualized left femoral head. Normal left acetabulum. There is mild articular joint space narrowing of the left hip. RAD/Hips B/L min 2 views w/ Pelvis IMPRESSION: Nondisplaced fracture of the left superior and inferior pubic rami. Electronically Signed: Arron Macdonald, at 15:02 EDT , Service support ,
== END ==
PROVIDERS: PCP Family Medicine; Referring Provider Physician Assistant Surgical; Visit Provider Physician Assistant Surgical
DX: S39.013A Strain of muscle, fascia and tendon of pelvis, initial encounter (principal)
CPT/HCPCS: 73521

== ENCOUNTER 2019-12-20 13:30 | Outpatient (RCR) | payer MEDICARE, OTHER, SELFPAY ==
[2019-12-01 11:28] VITALS: BMI 26.9
--- NOTE | 2019-12-06 16:26 | HP.PTEVAL_ITS ---
Patient's Visit Information ARABELLA HERNÁNDEZ is a 64 year old F referred to Physical Therapy by PEG Hernandez with a diagnosis of Strain of L leg and pelvis. Date of Evaluation: 12/06/19 Physical Therapist: RANDELL Davis - Visit Plan Frequency: 2x /Week Duration: 4 Weeks Plan: 2X/ week for 4 weeks for L hip stretching (HS, L hip adductor, L hip flexor), strengthening of the L hip abd, flexors, and extensors, gait training, with HEP and modalities if needed with HEP - Subjective Pt reports that a water bottle fell out of her bag as she was walking and got under her foot and her leg went out to the side and she fell weird. This was last Wednesday. She went to the clinic on Wednesday and was not better on Wednesday. said she just pulled and strained her groin, and the side of her hip. She has no N&T. She has been putting hot packs and linement on it and is helpful. SHe feels that it is improving. said for her to walk and do stuff. The patient wants no MEDS. She has been doing 3 IBProf every 8 hours.... but does n ot like to do that. Walking and putting her leg out to the side increases her bpain. SHe is sleeping ok. She will wake up if she has to roll over. - Pain L hip Pain Intensity (Out of 10): 6 L groin pain Pain Intensity (Out of 10): 6 - Objective Gait: Walks with a staight cane with decreased stance time on the L LE and slower speed. LE MMT: L hip flex 3+/5, R hip flex 4/5, L hip add 3-/5, R hip add 4/5, B knee flex and ext 4/5, L hip abd 3+/5 and R hip abd 4-/5, L hip ext 3-/5 and R hip ext 4-/5, pt is able to do 3/4 normal ROM bridge. Pt is able to walk on heels and toes without issue. Increase pain with stretching the L hip flexor and L hip adductor. Pt has increase pain with hip extension on the L with walking and rolling over in bed and going from a sitting to a standing position. - Goals Goal 1:: I HEP Goal Time Frame: 4-6 Weeks Goal 2:: Be able to walk without an AD without any pain with a normal speed and equal stance on B LE's Goal Time Frame: 4-6 Weeks Goal 3:: Increase L hip abd, ext and add strength to 4/5 without pain Goal Time Frame: 4-6 Weeks Goal 4:: Be able to go from a sitting to a standing position without having any pain. Goal Time Frame: 4-6 Weeks - Rehabilitation Potential Rehabilitation Potential: Good - Anticipated Interventions Patient/Client Instruction: Educate patient on: Condition, Plan of Care For the Purpose of:: To decrease pain, To increase ROM, To improve nutrient delivery to tissue, To improve muscle performance and motor function, To improve ability to perform ADL's, To increase tolerance to activity/condition/position, To improve performance and independence with ADL's, To decrease level of supervision to perform tasks, To improve ability of physical actions for home/community/work/leisure, To improve gait and locomotor functions, To improve health of tissue, To decrease soft tissue restriction, To increase flexibility/ROM, To improve balance Therapeutic Exercise to Include: Strength training, Balance training, Flexibilty training, Gait and locomotor training, Passive ROM, Active ROM For the Purpose of:: To decrease pain, To increase ROM, To improve nutrient delivery to tissue, To improve muscle performance and motor function, To improve ability to perform ADL's, To increase tolerance to activity/condition/position, To improve performance and independence with ADL's, To decrease level of supervision to perform tasks, To improve ability of physical actions for home/community/work/leisure, To improve gait and locomotor functions, To improve health of tissue, To decrease soft tissue restriction, To increase flexibility/ROM, To improve balance, To improve safety with gait Functional Training to Include: Gait training For the Purpose of:: To improve gait and locomotor functions, To improve safety with gait Manual Therapy Techniques to Include: Passive ROM, Soft tissue mobilization For the Purpose of:: To decrease swelling/inflammation, To increase ROM, To improve nutrient delivery to tissue Thermo therapy (hot pack): Yes Ultrasound (thermal/non thermal): Yes - if needed For the Purpose of:: To decrease pain, To decrease swelling/inflammation, To inc rease ROM, To improve nutrient delivery to tissue Thank you for the opportunity to evaluate your patient. For Medicare and Medicare HMO plans, please review the plan of care and approve it. It will need to be FAXED BACK to us at [phone] for Medicare purposes. For Medicare only, by signing this I certify the plan of care. Please let me know if there are questions or concerns regarding this plan of care. Physician Signature: Date:
--- NOTE | 2020-04-12 15:02 | HP.PTDCNRP_ITS ---
ARABELLA HERNÁNDEZ was seen in my office for initial evaluation on 12/06/19. The following Plan of Care was established for this patient: Initial Frequency: 2x /Week Initial Duration: 4 Weeks Patient/Client Instruction: Educate patient on: Condition, Plan of Care For the Purpose of:: To decrease pain, To increase ROM, To improve nutrient delivery to tissue, To improve muscle performance and motor function, To improve ability to perform ADL's, To increase tolerance to activity/condition/position, To improve performance and independence with ADL's, To decrease level of supervision to perform tasks, To improve ability of physical actions for home/community/work/leisure, To improve gait and locomotor functions, To improve health of tissue, To decrease soft tissue restriction, To increase flexibility/ROM, To improve balance Therapeutic Exercise to Include: Strength training, Balance training, Flexibilty training, Gait and locomotor training, Passive ROM, Active ROM For the Purpose of:: To decrease pain, To increase ROM, To improve nutrient delivery to tissue, To improve muscle performance and motor function, To improve ability to perform ADL's, To increase tolerance to activity/condition/position, To improve performance and independence with ADL's, To decrease level of supervision to perform tasks, To improve ability of physical actions for home/community/work/leisure, To improve gait and locomotor functions, To improve health of tissue, To decrease soft tissue restriction, To increase flexibility/ROM, To improve balance, To improve safety with gait Functional Training to Include: Gait training For the Purpose of:: To improve gait and locomotor functions, To improve safety with gait Manual Therapy Techniques to Include: Passive ROM, Soft tissue mobilization For the Purpose of:: To decrease swelling/inflammation, To increase ROM, To improve nutrient delivery to tissue Thermo therapy (hot pack): Yes Ultrasound (thermal/non thermal): Yes - if needed For the Purpose of:: To decrease pain, To decrease swelling/inflammation, To inc rease ROM, To improve nutrient delivery to tissue This patient was last seen in our office 12/20/19. Pertinent comments regarding their Physical therapy will appear below: [facility] PT. Pt came in and said she had an x-ray and it showed a small hip fracture. At this point I will be discontinuing this patient from physical therapy. I would be happy to see this patient again in the future if found appropriate by the physician. Thank you! Roselyn Perry, MPT
== END 2019-12-20 19:00 | disposition home or self-care (01) ==
LOC: PT 13:30
PROVIDERS: PCP Family Medicine; Referring Provider Physician Assistant Surgical; Visit Provider Physician Assistant Surgical
DX: S39.013D Strain of muscle, fascia and tendon of pelvis, subsequent encounter (principal); S86.912D Strain of unspecified muscle(s) and tendon(s) at lower leg level, left leg, subsequent encounter
CPT/HCPCS: 97110; 97161

== ENCOUNTER → 2019-12-29 14:29 | Outpatient (CLI) | payer MEDICARE, OTHER, SELFPAY ==
[2019-12-25 13:51] VITALS: BMI 26.9
--- NOTE | 2019-12-29 14:31 | CT_ITS ---
STUDY: CT PELVIS WITHOUT CONTRAST REASON FOR EXAM: Female, 64 years old. FALL FIVE WEEKS AGO. LEFT SIDED PELVIC PAIN RADIATION DOSAGE (If Supplied By Facility): CTDIvol = ( 16.32 ) mGy, DLP = ( 509.20 ) mGycm TECHNIQUE: Transaxial imaging of the pelvis was performed with oral contrast, and without intravenous administration of contrast material. Multiplanar coronal and sagittal images were reformatted. Individualized dose optimization techniques were used for this CT. COMPARISON: None. FINDINGS: Normal urinary bladder. Enlarged calcified fibroid uterus. Normal visualized small intestine. Normal visualized colon. There is no pelvic fluid. There is no pelvic mass lesion or lymphadenopathy. Normal visualized pelvic arteries. Normal abdominal wall. Nondisplaced fracture involving the left superior and inferior pubic rami. Overlying soft tissue swelling. Mild osteoarthritis of both hip joints. There are degenerative changes of the visualized lumbar spine. Minimal anterior listhesis of L4 on L5. CT/Pelvis without IV Contrast IMPRESSION: Nondisplaced fracture involving the left superior and inferior pubic rami with overlying soft tissue swelling.. Enlarged calcified fibroid uterus. Electronically Signed: Arron Macdonald, at 14:59 EDT , Service support ,
== END ==
PROVIDERS: PCP Family Medicine; Referring Provider Orthopaedic Surgery; Visit Provider Orthopaedic Surgery
DX: S32.409A Unspecified fracture of unspecified acetabulum, initial encounter for closed fracture (principal)
CPT/HCPCS: 72192

== ENCOUNTER → 2020-01-31 11:39 | Outpatient (CLI) | payer MEDICARE, OTHER, SELFPAY ==
[2020-01-03 11:41] VITALS: BMI 26.9
--- NOTE | 2020-01-31 11:39 | RAD_ITS ---
STUDY: X-RAY - PELVIS REASON FOR EXAM: Female, 64 years old. FX FOLLOW UP TECHNIQUE: One view of the pelvis was obtained. COMPARISON: 12/19/2019 FINDINGS: There is a non-specific bowel gas pattern. There are multiple calcified phleboliths. Normal bilateral iliac wings, sacroiliac joints and visualized sacrum. Normal visualized bilateral superior and inferior pubic rami. Normal pubic symphysis. Normal ischial tuberosities. Normal visualized right femoral head. Normal right acetabulum. Normal right hip joint. Healing fractures of the left acetabulum and left inferior pubic ramus. RAD/Pelvis 1 or 2 Views IMPRESSION: Healing fractures of the left acetabulum and left inferior pubic ramus with stable alignment. Electronically Signed: Landry Condon MD at 22:24 EDT Tel , Service support ,
== END ==
PROVIDERS: PCP Family Medicine; Referring Provider Orthopaedic Surgery; Visit Provider Orthopaedic Surgery
DX: S32.592A Other specified fracture of left pubis, initial encounter for closed fracture (principal)
CPT/HCPCS: 72170

== ENCOUNTER 2020-06-27 11:00 | Outpatient (RCR) | payer MEDICARE, OTHER, SELFPAY ==
[2020-05-13 10:24] VITALS: BMI 26.8
--- NOTE | 2020-05-20 13:45 | HP.PTEVAL_ITS ---
Patient's Visit Information ARABELLA HERNÁNDEZ is a 65 year old F referred to Physical Therapy by Dr. Jaxon Bryan DO with a diagnosis of L4 Spondylo, Hip tightness, L sciatica, Recent Pelvic Fx Healed, Groin Pain. Date of Evaluation: 05/20/20 Physical Therapist: Isis Phan DPT - Visit Plan Frequency: 2x /Week Duration: 4 Weeks Plan: Start with modalities of Ultrasound to the lumbar spine- then focus on GENTLE core and hip stretching and strengthening. Caution of peripheralization. - Subjective Patient reports that she fractured her pelvis slipped on a water bottle and the went down November 2019. She landed on her lower back- came here but was unaware of the fracture. Then had an x-ray and showed a pelvic fracture. The fracture has healed but now she groin and pain that travels along the left buttock, goes down the hamstring, into the groin and radiates the lateral aspect of the leg and down to the judson down the top of the foot. Chiropractor- last Wednesday-took x-rays- was waking up the muscle and it helped- but it did not stay. He did a manipulation. Worst: 6/10 Agg: crossing her legs, turning the foot out, lifting Best: 0/10 Eases: Ibuprofen, laying on her right side, stretching. Describes the pain as achy and shooting. Does have some N/T in her toes. 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 Sleep: disturbed when she lays on her left side. No car accidents- fell off horses as a kid but nothing recent. Work: retired- but very active. - Objective Posture: FH, RS, increased kyphosis- can correct but does not maintain. Gait: no deviation noted- good arm swing, federico and trunk rotation. HR/TR: able without UE A or pain. SLS: Left: 5 sec Right: 30 seconds. ROM: Lumbar: flexion: hands to toes-left knee bends to help with hamstring length left>right, Extn: WNL, SB and rotation: WFL with pain in left side bending, Hip: right: WFL Left: diminished ER by 50% with pain, Knee/Ankle: WFL. Sensation: WFL to gross touch bilateral LE. Reflex: WNL. Strength: Core: fair, Hip: Left: 4-/5 with pain testing in all directions- most in flexion and ER. Knee: 5/5, Ankle: 5/5. Flex: HS: severe, Gastroc: moderate. Special Test: Scour: positive, YASIR: positive, Dural Signs on left:positive, Slump: positive, No change with position testing, Squish: negative, LLD: negative. - Goals Goal 1:: Patient will be I with HEP and progression Goal Time Frame: 4-6 Weeks Goal 2:: Patient will maintain proper posture t/o tx session to demo increased core s/s. Goal Time Frame: 4-6 Weeks Goal 3:: Patient will report no peripheral symptoms Goal Time Frame: 4-6 Weeks Goal 4:: Patient will report ability to put her socks on for 1 week Goal Time Frame: 4-6 Weeks - Rehabilitation Potential Physical Therapy Diagnosis: Patient presents with hypomobility- she has decreased painfree ROM,strength, flex and muscular endurance leading to poor posture and increased pain with ADL's. Rehabilitation Potential: Fair - Anticipated Interventions Patient/Client Instruction: Educate patient on: Benefits of Fitness Program Therapeutic Exercise to Include: Strength training, Endurance training, Balance training, Coordination, Agility training, Body mechanics, Postural training, Flexibilty training, Gait and locomotor training, Neuromotor development, Passive ROM, Active ROM, Dynamic Lumbar Stabilization, Scapular Strength/Stabilization For the Purpose of:: To improve muscle performance and motor function TENS: Yes Cryotherapy (ice pack, ice massage): Yes Thermo therapy (hot pack): Yes Ultrasound (thermal/non thermal): Yes For the Purpose of:: To decrease pain Thank you for the opportunity to evaluate your patient. For Medicare and Medicare HMO plans, please review the plan of care and approve it. It will need to be FAXED BACK to us at [phone] for Medicare purposes. For Medicare only, by signing this I certify the plan of care. Please let me know if there are questions or concerns regarding this plan of care. Physician Signature: Date:
--- NOTE | 2020-06-27 11:36 | HP.PTDCSUM ---
It has been my pleasure to treat ARABELLA HERNÁNDEZ referred by Dr. Jaxon Bryan DO, with the diagnosis of L4 Spondylo, Hip tightness, L sciatica, Recent Pelvic Fx Healed, Groin Pain for a total of 9 visit(s). Discharge Date: Please see the following information for a summary of their discharge status. Subjective: Patient reports that her back does not hurt and she does not have pain down the leg anymore but does have hip pain. She does have some limited movement. She has enough ROM in the hip to get her shoes and socks on. Pain stops at the knee. Still doing all her stuff in the barn. Has not been back on the horse yet. She was painful to get herfoot in the sturrip. Left Hip Pain Intensity (Out of 10): 4 % Improvement: 50 Objective/Function: Posture: FH, RS, increased kyphosis- can correct with verbal cues. Gait: no deviation noted- good arm swing, federico and trunk rotation. HR/TR: able without UE A or pain. SLS: Left: 15 sec Right: 30 seconds. ROM: Lumbar: flexion: hands to toes-left knee bends to help with hamstring length left>right, Extn: WNL, SB and rotation: WFL, Hip: right: WFL Left: diminished ER by 25% with no pain, Knee/Ankle: WFL. Sensation: WFL to gross touch bilateral LE. Reflex: WNL. Strength: Core: fair plus, Hip: Left: 4+/5 no pain testing in all directions. Knee: 5/5, Ankle: 5/5. Flex: HS: severe, Gastroc: moderate. Special Test: Scour: positive, YASIR: positive, Dural Signs on left:positive, Slump: positive, No change with position testing, Squish: negative, LLD: negative. Goal 1:: Patient will be I with HEP and progression Goal 2:: Patient will maintain proper posture t/o tx session to demo increased core s/s. Goal 3:: Patient will report no peripheral symptoms Goal 4:: Patient will report ability to put her socks on for 1 week Plan: Patient to continue stretching and strength at home. Encouraged her to call if questions and retun as needed. Refer back to referring MD for further evaluation as needed. If there are questions or concerns regarding this patient's physical therapy, please feel free to call me at [phone]. Thank you for the referral of this patient. Sincerely, MICA RodriguezT
== END 2020-06-27 19:00 | disposition home or self-care (01) ==
LOC: PT 11:00
PROVIDERS: PCP Family Medicine; Referring Provider Orthopaedic Surgery; Visit Provider Orthopaedic Surgery
DX: M43.16 Spondylolisthesis, lumbar region (principal); M54.32 Sciatica, left side; R29.898 Other symptoms and signs involving the musculoskeletal system
CPT/HCPCS: 97035; 97110; 97161; 97164; 97530

== ENCOUNTER → 2023-09-22 | Outpatient (CLI) | payer MEDICARE, OTHER, SELFPAY ==
[2023-09-22 12:01] LABS: AST(SGOT) 21 U/L (15-37); Alanine Aminotransfer ALT/SGPT 32 U/L (13-56); Albumin, Serum 3.8 g/dL (3.2-5.0); Alkaline Phosphatase 108 U/L (45-117); Cholesterol 214 mg/dL (200); High Density Lipoprotein 72 mg/dL; Protein, Total 7.8 g/dL (6.4-8.2); Triglycerides 87 mg/dL; Very Low Density Lipoprotein 17 mg/dL (5-40)
== END | disposition home or self-care (01) ==
LOC: LAB 10:40
PROVIDERS: PCP Family Medicine; Referring Provider Internal Medicine Cardiovascular Disease; Visit Provider Internal Medicine Cardiovascular Disease
DX: E78.00 Pure hypercholesterolemia, unspecified (principal)
CPT/HCPCS: 36415; 80061; 80076

== ENCOUNTER → 2023-09-24 | Outpatient (CLI) | payer MEDICARE, OTHER, SELFPAY ==
--- OUTSIDE RECORDS SUMMARY | 2023-09-24 11:52 | XMS RPT_ITS | CCD ---
Author Name Unknown Address [address] [place] [address] Organization [facility] Care Team Providers Care Manager [employer] Name Role Phone EstebanLor Padmini Unavailable Unavailable ANN MARIE ALAN Attending Unavailable KASI GIL Primary Care Unavailable Kasi Gil MD Primary Care Provider Medications Current Medications Medication Drug Class(es) Dates Sig (Normalized) Sig (Original) benoxinate hydrochloride 4 mg/ml / fluorescein sodium 2.5 mg/ml ophthalmic solution (1 source) Diagnostic Dye Start: 12-23-2022 End: 12-23-2022 fluorescein-benoxi aziza 0.25-0.4 % 1 Drop (FLURESS) phenylephrine hydrochloride 25 mg/ml ophthalmic solution (1 source) alpha-1 Adrenergic Agonist Start: 12-23-2022 End: 12-23-2022 PHENYLephrine 2.5 % 1 Drop (AK-DILATE, JOSHUA-SYNEPHRINE) proparacaine hydrochloride 5 mg/ml ophthalmic solution (1 source) Local Anesthetic Start: 12-23-2022 End: 12-23-2022 proparacaine 0.5 % 1 Drop (ALCAINE) tropicamide 10 mg/ml ophthalmic solution (1 source) Anticholinergic Start: 12-23-2022 End: 12-23-2022 tropicamide 1 % 1 Drop (MYDRIACYL) Completed/Discontinued Medications Medication Drug Class(es) Dates Sig (Normalized) Sig (Original) calcium/magnesium/zinc ([id number] ) 333-133-5 mg tab (1 source) calcium/magnesiu m/zinc (IHLFCKY-[id number]-LIQ C) 333-133-5 mg tab Take by mouth. 0 Active Problems Active Problems Problem Classification Problem Date Documented Da te Episodic/Chronic Cataract (2 sources) Bilateral cortical age-related cataract eyes; Translations: [Cortical age-related cataract, bilateral] Onset: 12-23-2022 Chronic Inflammation; infection of eye (except that caused by tuberculosis or sexually transmitteddisease) (2 sources) Bilateral punctate keratitis of eyes; Translations: [Punctate keratitis, bilateral] Onset: 12-23-2022 Chronic Other eye disorders (2 sources) Ptosis of eyelid; Translations: [Unspecified ptosis of bilateral eyelids] Onset: 12-23-2022 Episodic Thyroid disorders (1 source) Non-toxic multinodular goiter; Translations: [Nontoxic multinodular goiter] Onset: 11-12-2006 11-12-2006 Chronic Past or Other Problems Problem Classification Problem Date Documented Date Episodic/Chronic Biliary tract disease (2 sources) Biliary calculus; Translations: [Calculus of gallbladder without cholecystitis without obstruction] Onset: 08-29-2015 Resolved: 09-27-2015 10-11-2015 Episodic Results Test Name Value Interpretation Reference Range Facil ity Vital Signs Date Time Vital Sign Value Performing Clinician Faci lity 09-30-2015 12:48-0500 Body Temperature 98.2 [degF] Lor Nazar [facility] Phone: 08-29-2015 12:01-0500 BMI (Body Mass Index) 26.63 kg/m2 Lor Nazar [facility] Phone: 08-29-2015 12:01-0500 BP Diastolic 83 mm[Hg] [facility] Naz[facility] Phone: 08-29-2015 12:01-0500 BP Systolic 134 mm[Hg] Lor Nazar [facility] Phone: 08-29-2015 12:01-0500 BSA (Body Surface Area) 1.84 m2 Lor Nazar [facility] Phone: 08-29-2015 12:01-0500 Height 167.64 cm Lor Nazar [facility] Phone: 08-29-2015 12:01-0500 Pulse (Heart Rate) 72 /min Lor Nazar [facility] Phone: 08-29-2015 12:01-0500 Respiratory Rate 16 /min Lor Orellana [facility] Phone: 08-29-2015 12:01-0500 Weight 74.84 kg Lor Orellana [facility] Phone: Encounters Encounter Date Encounter Type Care Provider Facility Start: 12-23-2022 End: 12-23-2022 ambulatory ANN MARIE ALAN Facility:[facility] Start: 12-23-2022 End: 12-23-2022 Patient encounter procedure Ann Marie Alan MD Work Phone: Ophthalmology Procedures Date Procedure Procedure Detail Performing Clinician Start: 12-23-2022 Computerized ophthal [place] imaging retina Ann Marie Alan MD Work Phone: Plan of Treatment Date Care Activity Detail Author Start: 03-26-2023 Influenza vaccination INFLUENZA (Season Ended) [facility] Start: 07-26-2022 ADVANCE DIRECTIVE DISCUSSION ADVANCE DIRECTIVE DISCUSSION [facility] Start: 07-26-2022 DEPRESSION ASSESSMENT DEPRESSION ASSESSMENT [facility] Start: 2018 BONE DENSITY BONE DENSITY [facility] Start: 2018 PNEUMOCOCCAL: 65+ (1 - PCV) PNEUMOCOCCAL: 65+ (1 - PCV) [facility] Start: 04-23-2017 End: 04-23-2017 Appointment Appointment [facility] Phone: Start: 2003 SHINGRIX VACCINE (1 of 2) SHINGRIX VACCINE (1 of 2) [facility] Start: 1998 COLOGUARD (FIT-DNA) COLOGUARD (FIT-DNA) [facility] Start: 1998 Colonoscopy COLONOSCOPY [facility] Start: 1998 COLORECTAL CANCER SCREENING COLORECTAL CANCER SCREENING [facility] Start: [address] COLONOGRAPHY [facility] Start: 1998 DIABETES SCREEN DIABETES SCREEN [facility] Start: 1998 FECAL OCCULT BLOOD FECAL OCCULT BLOOD [facility] Start: 1998 LIPID SCREEN LIPID SCREEN [facility] Start: 1998 SIGMOIDOSCOPY SIGMOIDOSCOPY [facility] Start: 1993 Mammography MAMMOGRAM [facility] Start: 02-03-1972 Urine microalbumin profile DTAP,TDAP,TD (1 - Tdap) [facility] Start: 1971 HEPATITIS C SCREENING HEPATITIS C SCREENING [facility] Start: 1953 COVID-19 VACCINE (#1) COVID-19 VACCINE (#1) [facility] Payers Date Payer Category Payer [employer] ( and others) [id number] 2018 Unknown FOR LIFE [id number] 2018-Present [phone] [address] [place] [address] Indemnity [id number] 2018 Medicare [id number] 2018 Medicare MEDICARE MEDICAR E A AND B [id number] 2018-Present [phone] [address] [address] [place] [address] Medicare [id number] Social History Date Type Detail Facility Start: 11-08-[address] [facility] Start: 11-08-2018 Tobacco use and exposure Smoke less tobacco non-user [facility] Start: 1955 Sex Assigned At Not on file [facility] Progress note 12-23-2022 Note Date & Type Note Facility 12-23-2022 Note HNO ID: [id number] Author: Ann Marie Alan MD Service: ? Author Type: Physician Type: Progress Notes Filed: 12/23/2022 10:28 AM Note Text: ASSESSMENT/PLAN: 1. Cortical age-related cataract, both eyes - ICD9: 366.15, ICD10: H25.013 (primary diagnosis) - Not visually significant - Monitor 2. Ptosis of both eyelids - ICD9: 374.30, ICD10: H02.403 - Monitor 3. Punctate keratitis, bilateral - ICD9: 370.21, ICD10: H16.143 - Systane Complete Artificial Tears - Use 1 Drop into both eyes three times a day. I have confirmed and edited as necessary the relevant ophthalmic history, review of systems, surgical history, and ophthalmological examination findings as obtained by the ophthalmic technical staff. I have seen and examined Arabella Hernández. I have discussed the examination findings, diagnosis, and treatment options with Arabella Hernández and/or her family. I have also reviewed and agree with the assessment and plan as stated above and agree with all its relevant components. I gave the patient the opportunity to ask questions about the findings, diagnosis, and treatment options. Ann Marie Alan MD [facility] Instructions 12-23-2022 Patient Instructions Note Date & Type Note Facility 12-23-2022 Instructions Ann Marie Alan MD - 12/23/2022 10:28 AM EDT - Systane Complete Artificial Tears - Use 1 Drop into both eyes three times a day. If you have any questions please contact our office at [phone]. After office hours or on the weekend, please call Dr. Alan on his cell phone at [phone]. documented in this encounter [facility] History of Present illness Narrative 12-23-2022 Ann Marie Alan MD - 12/23/2022 10:27 AM EDT Note Date & Type Note Facility 12-23-2022 History of Presen t illness Narrative ASSESSMENT/PLAN: 1. Cortical age-related cataract, both eyes - ICD9: 366.15, ICD10: H25.013 (primary diagnosis) - Not visually significant - Monitor 2. Ptosis of both eyelids - ICD9: 374.30, ICD10: H02.403 - Monitor 3. Punctate keratitis, bilateral - ICD9: 370.21, ICD10: H16.143 - Systane Complete Artificial Tears - Use 1 Drop into both eyes three times a day. I have confirmed and edited as necessary the relevant ophthalmic history, review of systems, surgical history, and ophthalmological examination findings as obtained by the ophthalmic technical staff. I have seen and examined Arabella Hernández. I have discussed the examination findings, diagnosis, and treatment options with Arabella Hernández and/or her family. I have also reviewed and agree with the assessment and plan as stated above and agree with all its relevant components. I gave the patient the opportunity to ask questions about the findings, diagnosis, and treatment options. Ann Marie Alan MD documented in this encounter [facility] History of Past illness Narrative 10-25-2006 Note Date & Type Note Facility documented as of this encounter (statuses as of 12/23/2022) [facility] Evaluation note Note Date & Type Note Facility documented in this encounter [facility] Summary Purpose Family History No Family History Records Found Advance Directives No Advanced Directives Records Found Medications Administered Section Active Administered Medications - up to 3 most recent administrations Medication Order MAR Action Action Date Dose Rate Site fluorescein-benoxinate 0.25-0.4 % 1 Drop (FLURESS) 1 Drop, BOTH EYES, DIRECTED, Starting on Wed12/23/22 at 0930, Until Wed12/23/22 at 2128, Administer for applanation tonometry. In the event of a Fluress shortage, administer Hamilton-Fluor 1 drop into both eyes as directed for applanation tonometry Given 12/23/2022 9:30 AM EDT 1 Drop PHENYLephrine 2.5 % 1 Drop (AK-DILATE, JOSHUA-SYNEPHRINE) 1 Drop, BOTH EYES, DIRECTED, Starting on Wed12/23/22 at 0930, Until Wed12/23/22 at 2128, Administer for dilation PROTECT FROM LIGHT Given 12/23/2022 9:30 AM EDT 1 Drop proparacaine 0.5 % 1 Drop (ALCAINE) 1 Drop, BOTH EYES, DIRECTED, Starting on Wed12/23/22 at 0930, Until Wed12/23/22 at 2128, Administer for pneumo tonometry, tonopen tonometry, or pachymetry. In the event of a proparacaine shortage, administer tetracaine 0.5% ophthalmic drops 1 drop in the left eye as directed for pneumo tonometry, tonopen tonometry, or pachymetry Given 12/23/2022 9:30 AM EDT 1 Drop tropicamide 1 % 1 Drop (MYDRIACYL) 1 Drop, BOTH EYES, DIRECTED, Starting on Wed12/23/22 at 0930, Until Wed12/23/22 at 2129, Administer for dilation Given 12/23/2022 9:30 AM EDT 1 Drop Additional Source Comments INFORMATION SOURCE (unrecogn ized section and content) Source Comments (unrecognize d section and content) In the event this informatio n is protected by the Federal Confidentiality of Alcohol and Drug Abuse Patient Records regulations: The Federal rules restrict any use of the information to criminally investigate or prosecute any alcohol or drug abuse patient.[facility] Reason for Visit (unrecogniz ed section and content) Care Teams (unrecognized sec tion and content) FOR RECORDS PERTAINING TO PATIENTS WHO ARE OR HAVE BEEN ENROLLED IN A CHEMICAL DEPENDENCY/SUBSTANCEABUSE PROGRAM, SOME INFORMATION MAY BE OMITTED. This clinical summary was aggregated from multiple sources. Caution should be exercised in using it in the provision of clinical care. This summary normalizes information from multiple sources, and as a consequence, information in this document may materially change the coding, format and clinical context of patient data. In addition, data may be omitted in some cases. CLINICAL DECISIONS SHOULD BE BASED ON THE PRIMARY CLINICAL RECORDS. [facility] [email or web address] [facility]. provides no warranty or guarantee of the accuracy or completeness of information in this document.
[2023-09-24 16:32] LABS: PTHIN 95.2 pg/mL (18.4-80.1)
[2023-09-24 16:37] LABS: ALB/GLOB Ratio 0.9 RATIO (0.9-2.4); AST(SGOT) 29 U/L (15-37); Alanine Aminotransfer ALT/SGPT 31 U/L (13-56); Albumin, Serum 3.7 g/dL (3.2-5.0); Alkaline Phosphatase 108 U/L (45-117); Anion Gap 4 (5-15); BUN 17 mg/dL (7-18); BUN/Creat Ratio 19.1 RATIO (10-20); Calcium,Total 9.8 mg/dL (8.5-10.1); Chloride 108 mmol/L (98-107); Creatinine, Serum 0.89 mg/dL (0.55-1.02); EST Glomerular Filtration Rate 67 mL/min (>60); Est Glom Filt Rate - Afr Amer 81 mL/min (>60); Globulin 3.9 g/dL (2.2-4.2); Glucose 110 mg/dL (74-106); Magnesium 2.2 mg/dL (1.6-2.6); Protein, Total 7.6 g/dL (6.4-8.2); Sodium Level 138 mmol/L (136-145); Thyroid Stim Hormone (TSH) 0.91 uIU/mL (0.358-3.74)
[2023-09-24 17:22] LABS: Vitamin D,25 Hydroxy 49.3 ng/mL
== END | disposition home or self-care (01) ==
LOC: MTLAB 11:35
PROVIDERS: PCP Family Medicine; Referring Provider Family Medicine; Visit Provider Family Medicine
DX: M85.80 Other specified disorders of bone density and structure, unspecified site (principal); E78.00 Pure hypercholesterolemia, unspecified
CPT/HCPCS: 36415; 80053; 82306; 83735; 83970; 84443

== ENCOUNTER → 2023-10-19 | Outpatient (CLI) | payer MEDICARE, OTHER, SELFPAY ==
--- NOTE | 2023-10-19 14:14 | BI_ITS ---
MAMMOGRAPHY - BILATERAL SCREENING REASON FOR EXAM: Female, 68 years old. Routine annual screening examination. PERTINENT HISTORY: Aunt with breast cancer. TECHNIQUE: Digital bilateral breast raheem (3D mammographic acquisition) in the CC and MLO projections. 2-D mediolateral oblique (MLO) and craniocaudad (CC) views of both breasts were obtained. CAD: Full Field Digital Mammography with Computer Added Detection was performed. COMPARISON: Comparison is made with prior study dated August 02, 2015 and December 01, 2013. FINDINGS: Breast Composition: The breasts are heterogeneously dense, which may obscure small masses. There are no dominant masses or suspicious calcifications. No other significant abnormalities are identified. There has been no significant change since the prior study. BI/SCRN MAMM (CAD)W/RAHEEM BILAT IMPRESSION: Stable bilateral screening mammogram. Yearly follow-up mammogram recommended. (A) ASSESSMENT CATEGORY: BIRADS Category 1: Negative. A letter regarding these results will be sent to the patient by the facility within 30 days. Approximately 10% of breast cancers are not detected by mammography. A normal mammogram should not delay biopsy of a clinically suspicious abnormality. [id number] Electronically Signed: Arron Macdonald MD at 9:18 EDT ,
--- NOTE | 2023-10-19 14:14 | BD_ITS ---
STUDY: DUAL ENERGY X-RAY ABSORPTIOMETRY / DXA REASON FOR EXAM: Female, 68 years old. M85.89 TECHNIQUE: Bone Mineral Density (BMD) measurements of lumbar spine and bilateral hips were obtained. COMPARISON: Comparison is made with prior study dated December 05, 2013. FINDINGS: Lumbar Spine (L1-L4): g/cm2 (0.899) / T-score (-1.3) / Z-score (0.8) Findings are suggestive of osteopenia with a low fracture risk. Left Femur Total: g/cm2 (0.676) / T-score (-2.2) / Z-score (-0.6) Left Femoral Neck: g/cm2 (0.646) / T-score (-1.8) / Z-score (0.0) Right Femur Total: g/cm2 (0.682) / T-score (-2.1) / Z-score (-0.6) Right Femoral Neck: g/cm2 (0.674) / T-score (-1.6) / Z-score (0.3) The T-Scores on the most recent prior examination were: Lumbar Spine (L1-L4): There has been improvement of bone density since the previous examination. Left Femur Total: which represents a worsening of 14.6. Right Femur Total: which represents a worsening of 10.3%. BD/Dexa Bone Density Study IMPRESSION: The patient is considered osteopenic as outlined below according to World [employer] Organization (WHO) criteria with a high fracture risk. There has been worsening of bone density since the previous examination. Reference Information: The T-score is the number of standard deviations above or below the standard which is normal for young adults at their peak bone mineral density. The World Health Organization (WHO) interprets the T-scores as follows: Above -1 Normal bone density Between -1 and -2.5 Osteopenia Equal to / or below -2.5 Osteoporosis As a practical clinical guideline, osteopenia may be graded as follows: Mild -1 through -1.5 Moderate -1.6 through -2.0 Severe -2.1 through -2.4 The Z-score is the number of standard deviations above or below age-matched controls. A Z-score of less than -1.5 would be considered abnormal. References: 1. NIH Osteoporosis and Related Bone Diseases www osteo.org 2. International Society for Clinical Densitometry www iscd.org 3. National Osteoporosis Foundation www nof.org Electronically Signed: Arron Macdonald MD at 13:03 EDT ,
== END | disposition home or self-care (01) ==
LOC: OPBD 14:12
PROVIDERS: PCP Family Medicine; Referring Provider Family Medicine; Visit Provider Family Medicine
DX: Z12.31 Encounter for screening mammogram for malignant neoplasm of breast (principal); M85.89 Other specified disorders of bone density and structure, multiple sites
CPT/HCPCS: 77063; 77067; 77080

== ENCOUNTER → 2023-10-20 | Outpatient (CLI) | payer MEDICARE, OTHER, SELFPAY ==
--- NOTE | 2023-10-20 12:44 | ECHOD_ITS ---
Reason For Study: Chest pain Procedure This was a 2D Doppler, Color Flow transthoracic echocardiogram. Exam performed in department. Left Ventricle Normal LV size. Mild concentric left ventricular hypertrophy. The left ventricular ejection fraction is 60 %. Normal diastology for age. Right Ventricle Normal right ventricle. Prominent moderator band. Atria The left and right atria are normal. Mitral Valve Mild mitral annular calcification. Mild (1+) mitral valve insufficiency. Tricuspid Valve Mild tricuspid valve insufficiency. Normal pulmonary artery pressure. Aortic Valve Trisinus/trileaflet aortic valve. Mild (1+) aortic valve insufficiency. Pulmonic Valve The pulmonic valve is not well visualized. Trivial pulmonic valve insufficiency. Great Vessels Normal sized aortic root. Pericardium/Pleural No pericardial effusion. MMode/2D Measurements & Calculations LVIDd: 1.2 cm IVSd: 1.2 cm Ao root diam: 3.3 cm LVIDs: 0.58 cm LVPWd: 4.4 cm RVDd: 3.4 cm FS: 50.8 % LAV(MOD-bp): 41.2 ml LVAd ap4: 27.0 cm2 LVAd ap2: 23.0 cm2 LAV(MOD-bp) Indexed: 23.2 ml/m2 LVLd ap4: 7.5 cm LVLd ap2: 7.2 cm LAV(MOD-sp2): 56.6 ml EDV(MOD-sp4): 76.0 ml EDV(MOD-sp2): 60.3 ml LAV(MOD-sp4): 26.6 ml EDV(sp4-el): 82.5 ml EDV(sp2-el): 62.4 ml LVAs ap4: 16.7 cm2 LVAs ap2: 14.0 cm2 LVLs ap4: 6.3 cm LVLs ap2: 6.4 cm ESV(MOD-sp4): 36.3 ml ESV(MOD-sp2): 25.0 ml ESV(sp4-el): 37.4 ml ESV(sp2-el): 26.1 ml EF(MOD-sp4): 52.2 % EF(MOD-sp2): 58.5 % EF(sp4-el): 54.7 % SV(MOD-sp4): 39.6 ml SV(MOD-sp2): 35.3 ml SV(sp4-el): 45.1 ml LA dimension(2D): 3.2 cm LA A4 area: 12.4 cm2 RA A4 area: 11.2 cm2 TAPSE: 2.1 cm Time Measurements MV dec time: 0.21 sec Doppler Measurements & Calculations MV E max gerardo: 75.9 cm/sec Lat Peak E' Gerardo: 12.3 cm/sec Med Peak E' Gerardo: 8.1 cm/sec MV A max gerardo: 91.8 cm/sec E/E' lat: 6.2 E/E' med: 9.4 MV E/A: 0.83 Ao V2 max: 113.9 cm/sec AI max gerardo: 407.6 cm/sec LV V1 max: 89.4 cm/sec Ao max P.2 mmHg AI max P.4 mmHg LV V1 max P.2 mmHg AI dec slope: 214.6 cm/sec2 AI P1/2t: 556.2 msec PA V2 max: 94.7 cm/sec PI end-d gerardo: 98.1 cm/sec TR max gerardo: 247.0 cm/sec TR max P.4 mmHg ECHO/Echo Complete Interpretation Summary The left ventricular ejection fraction is 60 %. Mild left ventricular concentri c hypertrophy. Mild mitral annular calcification. Mild (1+) mitral valve insufficiency. Mild tricuspid valve insufficiency. Mild (1+) aortic valve insufficiency. Ordering Physician: Bradly Benavidez Referring Physician: Kosta Gil MD Performed By: Tonja Norman RDCS
--- NOTE | 2023-10-20 12:44 | CDU_ITS ---
Reason For Study: Carotid Bruit Rt. Velocities/BP Lt. Velocities/BP Prox CCA 116/15 cm/sec. Prox CCA 80/13 cm/sec. Mid CCA 94/15 cm/sec. Mid CCA 78/14 cm/sec. Dist CCA 58/11 cm/sec. Dist CCA 78/19 cm/sec. Prox ICA 43/9 cm/sec. Prox ICA 55/15 cm/sec. Mid ICA 52/16 cm/sec. Mid ICA 54/13 cm/sec. Dist ICA 54/16 cm/sec. Dist ICA 66/18 cm/sec. Rt. ICA/CCA = 0.6. Lt. ICA/CCA = 0.8. Prox ECA 95/9 cm/sec. Prox ECA 82/13 cm/sec. Rt. Vert. 43/9 cm/sec. Lt. Vert. 92/24 cm/sec. Right Extracranial There is intimal thickening but no significant atherosclerotic plaque noted in the right common carotid artery. There is heterogeneous, irregular atherosclerotic plaque noted in the right internal carotid artery. There is intimal thickening but no significant atherosclerotic plaque noted in the right external carotid artery. Antegrade flow is noted in the right vertebral artery. Left Extracranial There is intimal thickening but no significant atherosclerotic plaque noted in the left common carotid artery. There is heterogeneous, irregular atherosclerotic plaque noted in the left internal carotid artery. There is heterogeneous, irregular atherosclerotic plaque noted in the left external carotid artery. Antegrade flow is noted in the left vertebral artery. Procedure Carotid Duplex [id number]. This is a Carotid Duplex examination using B-mode, color flow and specral Doppler. Incidental Finding: Enlarged, heterogeneous thyroid noted. Exam performed in department. VL/Carotid Duplex Ultrasound Interpretation Summary Minimal irregular plaque at the proximal right internal carotid artery with les s than 50% stenosis Less than 50% stenosis right external carotid artery Minimal irregular plaque at the proximal left internal carotid artery with less than 50% stenosis Less than 50% stenosis left external carotid artery Patent antegrade vertebral arteries bilaterally Heterogenous nodular left thyroid noted. Ordering Physician: Bradly Benavidez Referring Physician: Kosta Gil Performed By: Yola Collins RVT, RDCS and Student
== END | disposition home or self-care (01) ==
LOC: CVS 12:42
PROVIDERS: PCP Family Medicine; Referring Provider Internal Medicine Cardiovascular Disease; Visit Provider Internal Medicine Cardiovascular Disease
DX: R09.89 Other specified symptoms and signs involving the circulatory and respiratory systems (principal); I49.3 Ventricular premature depolarization; R07.89 Other chest pain; D86.9 Sarcoidosis, unspecified; F17.211 Nicotine dependence, cigarettes, in remission
CPT/HCPCS: 93306; 93880

== ENCOUNTER → 2023-11-05 | Outpatient (CLI) | payer MEDICARE, OTHER, SELFPAY ==
--- NOTE | 2023-11-05 12:25 | CT_ITS ---
STUDY: CT CHEST WITH CONTRAST REASON FOR EXAM: Female, 68 years old. CHEST PAIN RADIATION DOSAGE (If Supplied By Facility): CTDIvol = ( 31.89 ) mGy, DLP = ( 1133.75 ) mGycm TECHNIQUE: Transaxial imaging was performed following intravenous administration of IV 55mL Isovue-[id number]. Cardiac over read examination. Individualized dose optimization techniques were used for this CT. COMPARISON: Comparison is made with prior study dated October 27, 2018. FINDINGS: CHEST Minimal increased linear markings at the lung bases suggestive of atelectasis and/or scarring. Stable 5 mm calcified granuloma in the left lung base. There is no demonstrated pleural abnormality. There are calcifications of the coronary arteries. Calcified subcarinal lymph nodes. Calcified left hilar lymph nodes. Normal unenhanced pulmonary arteries. There is atherosclerotic calcification of the aortic arch. Normal osseous structures. Diffuse fatty infiltration of the liver. CT/Limited Chest CT Cardiac Only IMPRESSION: Coronary artery calcification. Fatty infiltration of the liver. Calcified granulomas. Electronically Signed: Arron Macdonald MD at 10:17 EDT ,
[2023-11-05 12:43] VITALS: BP 141/74; PULSE 69; RESP 16; TEMP 36.4; O2SAT 96; BMI 25.4
[2023-11-05 13:12] VITALS: BP 141/74; PULSE 74
[2023-11-05] MEDS: Nitroglycerin SL (ED/IMG/CATH) 0.4 MG TABLET SL (13:12)
[2023-11-05 13:16] LABS: CREATININE FINGERSTICK 1.1 mg/dL (0.55-1.02)
[2023-11-05 13:18] VITALS: BP 138/78; PULSE 76; RESP 16; O2SAT 95
--- NOTE | 2023-11-05 17:19 | CCTA.WCONT ---
CCTA w/Cont Coronary Arteries Date of Study:: 11/05/23 Chest pain Coronary Calcium Scoring: High-resolution Computed Tomographic imaging of the chest was performed on [11/05/2023], with particular attention paid to the coronary arteries. Intravenous contrast agent was administered per protocol and images reconstructed and displayed. LEFT MAIN CORONARY ARTERY: Arises from the left coronary cusp and bifurcates into left anterior descending artery and left circumflex artery no high-grade stenosis is noted. [] LEFT ANTERIOR DESCENDING CORONARY ARTERY: Arises from the left main coronary artery and is noted to have areas of calcification in the proximal and mid segments. There is moderate nonobstructive stenosis noted in these areas with mild diffuse disease noted distally [] LEFT CIRCUMFLEX CORONARY ARTERY: No high-grade stenosis noted of this vessel [] RIGHT CORONARY ARTERY: Focal calcification noted in the mid right coronary artery with moderate nonobstructive disease present. CORONARY CALCIUM SCORE: Not performed: Conclusion: Coronary CTA with moderate calcification noted in the proximal and mid left anterior descending artery and moderate calcification noted in the right coronary artery and a focal area with moderate nonobstructive stenosis present. []
== END | disposition home or self-care (01) ==
LOC: CT 12:24
PROVIDERS: PCP Family Medicine; Referring Provider Internal Medicine Cardiovascular Disease; Visit Provider Internal Medicine Cardiovascular Disease
DX: R07.9 Chest pain, unspecified (principal); I49.3 Ventricular premature depolarization; D86.9 Sarcoidosis, unspecified; R09.89 Other specified symptoms and signs involving the circulatory and respiratory systems; F17.211 Nicotine dependence, cigarettes, in remission
CPT/HCPCS: 75574; 76380; Q9967